=== PATIENT | female | born 2000 | race Caucasian/White ===

== ENCOUNTER → 2021-03-17 | Outpatient (CLI) | payer OTHER | END | disposition home or self-care (01) | LOC: LAB SHORT 17:35 | DX: R21 Rash and other nonspecific skin eruption (principal) | CPT/HCPCS: 87070; 87077; 87147; 87186; 87205 ==

== ENCOUNTER 2024-08-06 11:58 | Emergency (ER) | payer OTHER ==
[~2024-08-06] VITALS: Ht 160 cm; Wt 81.7 kg
[2024-08-06 12:20] VITALS: BP 146/87
[2024-08-06 13:10] LABS: Source, Urine Clean Catch
[2024-08-06 13:20] LABS: Appearance, Urine Hazy (Clear); BASOPHILS ABSOLUTE AUTO 0.04 K/mm3 (0.00-0.23); BASOPHILS PERCENT AUTO 1 % (0-2); Bilirubin, Urine Neg (Neg); Blood, Urine 5+ (Neg); Color, Urine Yellow (P-Yellow); EOSINOPHILS ABSOLUTE AUTO 0.11 K/mm3 (0.00-0.68); EOSINOPHILS PERCENT AUTO 2 % (0-6); Glucose Qualitative, Urine Neg (Neg); Hematocrit 38.8 % (33.0-51.0); Hemoglobin 13.4 g/dL (11.5-16.0); IMMATURE GRAN ABSOLUTE AUTO 0.02 K/mm3 (0.00-0.10); IMMATURE GRAN PERCENT AUTO 0 % (0-1); Ketones, Urine Neg (Neg); LYMPHOCYTES ABSOLUTE AUTO 1.84 K/mm3 (0.84-5.20); LYMPHOCYTES PERCENT AUTO 30 % (21-46); Leukocyte Esterase, Urine Neg (Neg); MONOCYTES PERCENT AUTO 7 % (4-13); Mean Corpuscular HGB 30.9 pg (26.0-34.0); Mean Corpuscular HGB Conc 34.5 g/dL (31.5-36.5); Mean Corpuscular Volume 89 fL (80-100); NEUTROPHILS ABSOLUTE AUTO 3.75 K/mm3 (1.96-9.15); NEUTROPHILS PERCENT AUTO 61 % (41-73); Nitrite, Urine Neg (Neg); Platelet Count 308 K/mm3 (150-400); Protein, Urine 1+ (Neg); RDW Coefficient Variation 11.8 % (11.7-14.2); RDW Standard Deviation 38.4 fL (35.1-46.3); Red Blood Cell Count 4.34 M/mm3 (3.80-5.20); Urobilinogen, Urine NORM (Normal); White Blood Cell Count 6.16 K/mm3 (4.00-11.30); pH, Urine 6.5 (5.0-8.0)
[2024-08-06 13:27] LABS: Bacteria Few /hpf; Red Blood Cells, Urine TNTC /hpf (0-2); Squamous Epithelial Cells Rare /hpf (Few); White Blood Cells, Urine 0-2 /hpf (0-5)
[2024-08-06 13:44] LABS: Albumin, Blood 3.8 g/dL (3.4-5.0); Albumin/Globulin Ratio 1.1 (0.8-1.8); Bilirubin, Total 0.5 mg/dL (0.1-1.0); Bun/Creatinine Ratio 13.2 (12.0-20.0); Calcium, Blood 8.9 mg/dL (8.5-10.1); Creatinine, Blood 0.68 mg/dL (0.40-1.00); Globulin, Blood 3.4 g/dL (2.2-4.0); Potassium, Blood 3.5 mmol/L (3.5-5.5); Total Protein, Blood 7.2 g/dL (6.4-8.2)
[2024-08-06] MEDS ORDERED: Ketorolac Tromethamine 15mg Vial IV ONE (14:35)
== END 2024-08-06 14:40 | disposition home or self-care (01) ==
LOC: ER 11:58
PROVIDERS: Physician Assistant
DX: N92.0 Excessive and frequent menstruation with regular cycle (principal); N83.201 Unspecified ovarian cyst, right side
CPT/HCPCS: 80053; 81001; 84703; 85025; 96374; 99284-25; J1885

== ENCOUNTER 2024-08-20 12:33 | Emergency (ER) | payer OTHER ==
[~2024-08-20] VITALS: Ht 160 cm; Wt 81.7 kg
[2024-08-20 14:15] VITALS: BP 104/61
[2024-08-20] MEDS ORDERED: CYCL10 PO (14:20)
== END 2024-08-20 14:48 | disposition home or self-care (01) ==
LOC: ER 12:33
DX: S43.401A Unspecified sprain of right shoulder joint, initial encounter (principal); M54.2 Cervicalgia; Z87.81 Personal history of (healed) traumatic fracture; V80.010A Animal-rider injured by fall from or being thrown from horse in noncollision accident, initial encounter
CPT/HCPCS: 72125; 73030; 81025; 99284-25